=== PATIENT | female | born 1965 | race Caucasian/White ===

== ENCOUNTER 2024-03-17 22:01 | Emergency (ER) | payer SELFPAY ==
[~2024-03-17] VITALS: Ht 167.6 cm; Wt 74.0 kg
[2024-03-17 22:04] VITALS: O2SAT 98
[2024-03-17] MEDS: SODIUM CHLORIDE 0.9% 1,000 ML IV ONE (23:56)
[2024-03-18] MEDS ORDERED: IBUP-2029 MT (03:31)
[2024-03-18 04:24] VITALS: BP 104/55; PULSE 89; RESP 16; TEMP 36.78072; O2SAT 99
== END 2024-03-18 04:31 | disposition home or self-care (01) ==
LOC: ER 22:01
DX: M48.54XA Collapsed vertebra, not elsewhere classified, thoracic region, initial encounter for fracture (principal); M54.2 Cervicalgia; F10.129 Alcohol abuse with intoxication, unspecified; Y90.8 Blood alcohol level of 240 mg/100 ml or more; W18.39XA Other fall on same level, initial encounter; Y93.89 Activity, other specified; Y92.89 Other specified places as the place of occurrence of the external cause; Y99.8 Other external cause status
CPT/HCPCS: 80320; 36415; 70450; 72125; 72128; 99284; J7030; G0480